=== PATIENT | female | born 1965 | race Caucasian/White ===

== ENCOUNTER → 2016-11-09 | Outpatient (CLI) | payer OTHER ==
[~2016-11-09] MED LIST: ATOR-26 PO; CEPH500C PO; CLR10 PO; IBUP-1427 PO; INSDGI SC; LISI2.5T5 PO; METF-384 PO; SULF800T23 PO
--- NOTE | 2016-11-10 14:34 | MAMMOGRAPHY REPORT ---
BILATERAL DIGITAL SCREENING MAMMOGRAM TOMOSYNTHESIS WITH CAD: 11/09/2016 CLINICAL HISTORY: Routine screening. TECHNIQUE: Breast tomosynthesis in addition to standard 2D mammography was performed. Current study was also evaluated with a Computer Aided Detection (CAD) system. COMPARISON: Comparison is made to exams dated: 05/10/2016 mammogram, 11/09/2015 mammogram, 11/02/2015 mammogram, 10/30/2014 mammogram, 10/09/2013 mammogram, and 09/26/2012 mammogram - [facility]. BREAST COMPOSITION: There are scattered areas of fibroglandular density in both breasts. FINDINGS: No suspicious masses, calcifications, or areas of architectural distortion are noted in ei ther breast. There has been no significant interval change compared to prior exams. IMPRESSION: ACR BI-RADS CATEGORY 1: NEGATIVE There is no mammographic evidence of malignancy. A 1 year screening mammogram is recommended. The pa tient will receive written notification of the results. Approximately 10% of breast cancers are not detected with mammography. A negative mammographic report should not delay biopsy if a clinically suggestive mass is present. Neema Yee M.D. /:11/10/2016 07:47:59 Farm Adviser: Sabrina PRIETO(Saundra)(M), [facility] letter sent: Normal 1/2 BI-RADS Code: ACR BI-RADS Category 1: Negative
== END | disposition home or self-care (01) ==
LOC: C.MAMM 17:03
PROVIDERS: ATTEND Nurse Practitioner
DX: Z12.31 Encounter for screening mammogram for malignant neoplasm of breast (principal)

== ENCOUNTER 2016-11-25 11:53 | Emergency (ER) | payer OTHER ==
[~2016-11-25] VITALS: Ht 162.6 cm; Wt 74.3 kg
[~2016-11-25 11:53] MED LIST changes: -CEPH500C PO; -IBUP-1427 PO; -SULF800T23 PO
[2016-11-25 11:56] VITALS: Ht 162.6 cm; Wt 74.3 kg
[2016-11-25] MEDS ORDERED: IBUPROFEN 600 MG TAB PO STA (13:40)
--- NOTE | 2016-11-25 13:59 | EMERGENCY ROOM VISIT NOTE ---
History Report prepared by Sydnee: Yaw Chino Under the Supervision of: Dr. Colby Hernandez M.D. First contact with patient: 13:34 Chief Complaint: FINGER PAIN Stated Complaint: THUMB PAIN History of Present Illness The patient is a 51 year old female who presents to the Emergency Room with complaints of constant left thumb pain starting two days ago. Additionally the pinky on the right hand has been red for two weeks. The patient states that she does not think that the hit it. Additionally, the patient is diabetic, and she states that her sugar has been normal recently. She states that she was pulling weeds recently as well before this happened. She is taking Tylenol at home for the pain. Source of History: patient Onset: two days ago Position: other (left thumb) Quality: other (bruised) Timing: constant Note: Associated symptoms: Left pinky redness Review of Systems All systems have been listed, reviewed, and are negative other than those previously mentioned. Please see Additional Medical History Sheet. Past Medical & Surgical Medical Problems: (1) Diabetes (2) High cholesterol Social History Smoking Status: Never Smoker Marital Status: single Occupation Status: disabled Current/Historical Medications Scheduled Atorvastatin (Lipitor), 80 MG PO HS Cephalexin Monohydrate (Keflex), 500 MG PO QID Insulin Glargine (Lantus), 35 UNITS SC BID Lisinopril (Lisinopril), 2.5 MG PO QAM Loratadine (Claritin), 10 MG PO QAM Metformin Hcl (Glucophage), 1,000 MG PO BID Scheduled PRN Ibuprofen Tab (Motrin), 600 MG PO Q6H PRN for Pain Allergies Coded Allergies: No Known Allergies (Verified , 11/25/16) Physical Exam Vital Signs Date Time Temp Pulse Resp B/P (MAP) Pulse Ox O2 Delivery O2 Flow Rate FiO2 11/25/16 15:16 36.7 75 18 124/79 96 11/25/16 14:02 69 18 143/81 95 11/25/16 11:56 36.7 89 16 123/71 96 Room Air Physical Exam GENERAL: Patient awake, alert, oriented x 3. Patient follows commands. Patient does not appear to be ill. Patient is adequately hydrated and well- nourished. SKIN: No erythema, pallor, cyanosis or rash HEENT: Normal head, pupils equal, reactive to light and accommodation. Ears normal. Oral cavity and posterior pharynx appear normal. Neck: Without adenopathy, no neck vein distention. LUNGS: Clear to auscultation. No wheezes, no rales, no rhonchi. HEART: No murmurs. No gallops. No rubs ABDOMEN: Soft and Nontender. No masses, no rebound, no hepatomegaly or splenomegaly. EXTREMITIES: Ecchymosis on the radial side of the distal end of the left thumb. The right fifth finger appears to be erythematous and infected at the end of the finger. No pedal or pretibial edema. No calf or thigh tenderness. NEUROLOGIC: Cranial nerves II-XII within normal limits. No gross motor sensory function deficits. Medical Decision & Procedures ER Provider Diagnostic Interpretation: X ray results are stated below per my interpretation and the radiologist's interpretation. RIGHT FIFTH FINGER 3 VIEWS CLINICAL HISTORY: Infected right fifth finger COMPARISON: None. DISCUSSION: The bones are osteopenic. There are mild osteoarthritic changes. There are no acute fractures. There is no conventional radiographic evidence of osteomyelitis. There is a small particular calcification at the level the volar aspect of the proximal to phalangeal joint. There is soft tissue swelling at the base of the nailbed. There is no evidence for soft tissue swelling. IMPRESSION: 1. Soft tissue swelling centered on the base the nailbed 2. No acute fractures or dislocations 3. No conventional radiographic evidence of osteomyelitis Electronically signed by: Lemuel Duran M.D. 11/25/2016 2:36 PM Dictated Date/Time: 11/25/2016 2:35 PM Left thumb 3 views CLINICAL HISTORY: thumb ecchymotic COMPARISON: None. DISCUSSION: No acute fractures are visualized. There are mild arthritic changes most pronounced the level the first carpal metacarpal joint. There is a 5 mm lytic focus within the base of the distal phalanx. This has a nonaggressive appearance with a narrow zone of transition. This is only visualized on the oblique film. IMPRESSION: 1. Probable 5 mm lytic focus visualized within the base of the distal phalanx. This is visualized only one projection. This has a nonaggressive appearance. 2. No acute fractures Electronically signed by: Lemuel Duran M.D. 11/25/2016 2:46 PM Dictated Date/Time: 11/25/2016 2:44 PM Laboratory Results 11/25/16 13:45 Red Blood Count 5.23, Mean Corpuscular Volume 94.3, Mean Corpuscular Hemoglobin 29.6, Mean Corpuscular Hemoglobin Concent 31.4, Mean Platelet Volume 9.7, Neutrophils (%) (Auto) 80.2, Lymphocytes (%) (Auto) 10.2, Monocytes (%) (Auto) 8.1, Eosinophils (%) (Auto) 1.0, Basophils (%) (Auto) 0.2, Neutrophils # (Auto) 8.61, Lymphocytes # (Auto) 1.09, Monocytes # (Auto) 0.87, Eosinophils # (Auto) 0.11, Basophils # (Auto) 0.02 11/25/16 13:45 Test 11/25/16 13:45 White Blood Count 10.73 K/uL (4.8-10.8) Red Blood Count 5.23 M/uL (4.2-5.4) Hemoglobin 15.5 g/dL (12.0-16.0) Hematocrit 49.3 % (37-47) Mean Corpuscular Volume 94.3 fL (80-100) Mean Corpuscular Hemoglobin 29.6 pg (25-34) Mean Corpuscular Hemoglobin Concent 31.4 g/dl (32-36) Platelet Count 188 K/uL (130-400) Mean Platelet Volume 9.7 fL (7.4-10.4) Neutrophils (%) (Auto) 80.2 % Lymphocytes (%) (Auto) 10.2 % Monocytes (%) (Auto) 8.1 % Eosinophils (%) (Auto) 1.0 % Basophils (%) (Auto) 0.2 % Neutrophils # (Auto) 8.61 K/uL (1.4-6.5) Lymphocytes # (Auto) 1.09 K/uL (1.2-3.4) Monocytes # (Auto) 0.87 K/uL (0.11-0.59) Eosinophils # (Auto) 0.11 K/uL (0-0.5) Basophils # (Auto) 0.02 K/uL (0-0.2) RDW Standard Deviation 46.1 fL (36.4-46.3) RDW Coefficient of Variation 13.4 % (11.5-14.5) Immature Granulocyte % (Auto) 0.3 % Immature Granulocyte # (Auto) 0.03 K/uL (0.00-0.02) Anion Gap 5.0 mmol/L (3-11) Est Creatinine Clear Calc Drug Dose 76.5 ml/min Estimated GFR () 91.3 Estimated GFR (Non- 78.8 BUN/Creatinine Ratio 23.1 (10-20) Calcium Level 9.2 mg/dl (8.5-10.1) Total Bilirubin 0.4 mg/dl (0.2-1) Aspartate Amino Transf (AST/SGOT) 6 U/L (15-37) Alanine Aminotransferase (ALT/SGPT) 21 U/L (12-78) Alkaline Phosphatase 90 U/L (45-117) Total Protein 7.5 gm/dl (6.4-8.2) Albumin 4.0 gm/dl (3.4-5.0) Globulin 3.5 gm/dl (2.5-4.0) Albumin/Globulin Ratio 1.1 (0.9-2) Laboratory results as stated above per my review. Medications Administered Medications (Trade) Dose Ordered Sig/Wilmar Route Start Time Stop Time Status Last Admin Dose Admin Ibuprofen (Motrin Tab) 600 mg NOW STAT PO 11/25/16 13:40 11/25/16 13:43 DC 11/25/16 13:40 600 MG ED Course 1334: Past medical records reviewed. The patient was evaluated in room C12. A complete history and physical examination was performed. 1340: Motrin Tab 600mg PO 1459: Upon reevaluation, the patient appeared to have improvement of her symptoms. I discussed today's findings with her. She verbalized agreement of the treatment plan. She was discharged home. Medical Decision Nurses notes reviewed. Medical history sheet reviewed. Differential diagnosis includes but is not limited to: trauma, infection, and septic emboli. Blood pressure Screening: Patient was found to have normal blood pressure on screening and does not require follow up. Medication Reconciliation: I attest that I have personally reviewed the patient' s current medication list. The patient has erythema and slight swelling of both her thumb and fifth finger on opposite hands. X-rays do not reveal any osteomyelitis or other sign of infection. Rest of exam is unremarkable. She does not appear to be septic or have signs of infection elsewhere. The patient's white count is not elevated. Glucose is elevated. In light of the swelling she may have some early cellulitis and therefore was placed on Keflex. She will take Motrin for pain. Impression Primary Impression: Finger swelling Scribe Attestation The scribe's documentation has been prepared under my direction and personally reviewed by me in its entirety. I confirm that the note above accurately reflects all work, treatment, procedures, and medical decision making performed by me. Departure Information Dispostion Home / Self-Care Prescriptions Ibuprofen Tab (MOTRIN) 600 Mg Tab 600 MG PO Q6H Y for Pain, #20 TAB Prov: Colby Hernandez M.D. 11/25/16 Cephalexin Monohydrate (Keflex) 500 Mg Cap 500 MG PO QID, #28 CAP Prov: Colby Hernandez M.D. 11/25/16 Referrals Deborah Castaneda C.R.N.P (PCP) Forms HOME CARE DOCUMENTATION FORM, IMPORTANT VISIT INFORMATION Patient Instructions My [facility] Additional Instructions Take 1 Keflex 4 times a day for the next 7 days. 600 mg ibuprofen every 6 hours as needed for pain. Follow-up with your family physician within the next 10 days to make sure your fingers are better.
[2016-11-25 14:15] LABS: BASO % 0.2 %; BASO ABS # 0.02 K/uL (0-0.2); COMPLETE YES; HEMATOCRIT 49.3 % (37-47); IG% 0.3 %; LYMPH % 10.2 %; LYMPH ABS # 1.09 K/uL (1.2-3.4); MEAN CELL VOLUME 94.3 fL (80-100); MEAN CORPUSCULAR HEMOGLOBIN 29.6 pg (25-34); MEAN CORPUSCULAR HGB CONC 31.4 g/dl (32-36); MEAN PLATELET VOLUME 9.7 fL (7.4-10.4); MONO % 8.1 %; NEUT % 80.2 %; PLATELET COUNT 188 K/uL (130-400); RED BLOOD COUNT 5.23 M/uL (4.2-5.4); WHITE BLOOD COUNT 10.73 K/uL (4.8-10.8)
[2016-11-25 14:33] LABS: BUN/CREATININE RATIO 23.1 (10-20); CALCIUM 9.2 mg/dl (8.5-10.1); CREATININE 0.85 mg/dl (0.60-1.20); POTASSIUM 3.8 mmol/L (3.5-5.1)
[2016-11-25 14:36] LABS: ALB/GLOB RATIO 1.1 (0.9-2)
--- NOTE | 2016-11-25 14:37 | DIAGNOSTIC IMAGING REPORT ---
RIGHT FIFTH FINGER 3 VIEWS CLINICAL HISTORY: Infected right fifth finger COMPARISON: None. DISCUSSION: The bones are osteopenic. There are mild osteoarthritic changes. There are no acute fractures. There is no conventional radiographic evidence of osteomyelitis. There is a small particular calcification at the level the volar aspect of the proximal to phalangeal joint. There is soft tissue swelling at the base of the nailbed. There is no evidence for soft tissue swelling. IMPRESSION: 1. Soft tissue swelling centered on the base the nailbed 2. No acute fractures or dislocations 3. No conventional radiographic evidence of osteomyelitis Electronically signed by: Lemuel Duran M.D. 11/25/2016 2:36 PM Dictated Date/Time: 11/25/2016 2:35 PM
--- NOTE | 2016-11-25 14:48 | DIAGNOSTIC IMAGING REPORT ---
Left thumb 3 views CLINICAL HISTORY: thumb ecchymotic COMPARISON: None. DISCUSSION: No acute fractures are visualized. There are mild arthritic changes most pronounced the level the first carpal metacarpal joint. There is a 5 mm lytic focus within the base of the distal phalanx. This has a nonaggressive appearance with a narrow zone of transition. This is only visualized on the oblique film. IMPRESSION: 1. Probable 5 mm lytic focus visualized within the base of the distal phalanx. This is visualized only one projection. This has a nonaggressive appearance. 2. No acute fractures Electronically signed by: Lemuel Duran M.D. 11/25/2016 2:46 PM Dictated Date/Time: 11/25/2016 2:44 PM
[2016-11-25] MEDS ORDERED: IBUP-1427 PO (15:02)
[2016-11-25] MEDS ORDERED: CEPH500C PO (15:02)
[2016-11-25 15:16] VITALS: BP 124/79; PULSE 75; TEMP 36.7; O2SAT 96
== END 2016-11-25 15:16 | disposition home or self-care (01) ==
LOC: C.EDB 11:55 → C.EDC 15:16
DX: M79.89 Other specified soft tissue disorders (principal); E11.9 Type 2 diabetes mellitus without complications; E78.00 Pure hypercholesterolemia, unspecified; Z79.4 Long term (current) use of insulin; Z79.899 Other long term (current) drug therapy

== ENCOUNTER → 2017-06-09 | Outpatient (CLI) | payer OTHER ==
[~2017-06-09] MED LIST changes: +SULF800T23 PO
[2017-06-09 18:34] LABS: ALT/SGPT 32 U/L (12-78); BLOOD UREA NITROGEN 12 mg/dl (7-18); CALCIUM 9.4 mg/dl (8.5-10.1); CARBON DIOXIDE 29 mmol/L (21-32); CHOLESTEROL 307 mg/dl (0-200); CREATININE 0.78 mg/dl (0.60-1.20); GLUCOSE 238 mg/dl (70-99); POTASSIUM 3.7 mmol/L (3.5-5.1); SODIUM 137 mmol/L (136-145)
[2017-06-09 18:44] LABS: ALKALINE PHOSPHATASE 96 U/L (45-117); AST/SGOT 17 U/L (15-37); LDL CHOLESTEROL CALCULATED 201 mg/dl; TOTAL PROTEIN 7.6 gm/dl (6.4-8.2)
[2017-06-10 06:58] LABS: HEMOGLOBIN A1C 10.5 % (4.5-5.6)
== END | disposition home or self-care (01) ==
LOC: C.LABPVFM 15:07
PROVIDERS: ATTEND Nurse Practitioner Family
DX: E78.5 Hyperlipidemia, unspecified (principal); E11.9 Type 2 diabetes mellitus without complications; R94.6 Abnormal results of thyroid function studies

== ENCOUNTER → 2017-09-01 | Outpatient (CLI) | payer OTHER ==
[~2017-09-01] MED LIST changes: +LISI-1116 PO; -LISI2.5T5 PO
[2017-09-01 14:21] LABS: BLOOD UREA NITROGEN 11 mg/dl (7-18); CARBON DIOXIDE 28 mmol/L (21-32); CREATININE 0.82 mg/dl (0.60-1.20); GLUCOSE 182 mg/dl (70-99); POTASSIUM 3.9 mmol/L (3.5-5.1); SODIUM 140 mmol/L (136-145)
[2017-09-01 14:27] LABS: CHOLESTEROL 187 mg/dl (0-200); LDL CHOLESTEROL CALCULATED 122 mg/dl
== END | disposition home or self-care (01) ==
LOC: C.LABPVFM 10:32
PROVIDERS: ATTEND Nurse Practitioner
DX: E78.5 Hyperlipidemia, unspecified (principal); E11.9 Type 2 diabetes mellitus without complications

== ENCOUNTER → 2017-12-25 | Outpatient (CLI) | payer OTHER ==
[2017-12-25 17:25] LABS: BLOOD UREA NITROGEN 15 mg/dl (7-18); CALCIUM 8.9 mg/dl (8.5-10.1); CARBON DIOXIDE 29 mmol/L (21-32); CREATININE 0.78 mg/dl (0.60-1.20); GLUCOSE 237 mg/dl (70-99); SODIUM 139 mmol/L (136-145)
[2017-12-26 05:51] LABS: HEMOGLOBIN A1C 9.9 % (4.5-5.6)
== END | disposition home or self-care (01) ==
LOC: C.LABPVFM 15:51
PROVIDERS: ATTEND Nurse Practitioner
DX: E11.9 Type 2 diabetes mellitus without complications (principal)

== ENCOUNTER 2020-04-04 11:14 | Observation (INO) ==
[2020-04-04] MEDS ORDERED: CLINDAMYCIN 900 MG in DEXTROSE 5% 50 ML IV ONE (12:01)
[2020-04-04] MEDS ORDERED: SODIUM CHLORIDE 0.9% 1000ML 500 ML IV ONE (12:03)
--- NOTE | 2020-04-04 12:07 | Emergency Department Note ---
Impression & Plan Cellulitis of face, Dental abscess, Abscess of face, Failure of outpatient treatment ED Provider Note NAME: MARCO ANDRADE AGE: 54 SEX: F : 1965 ARRIVES VIA: Walk-In INFORMANT: [Patient][sister] ED PROVIDER(S): [Geovanni Silva MD] CHIEF COMPLAINT: Facial pain HISTORY OF PRESENT ILLNESS: The patient is a 54-year-old female who has had 4 days of pain and swelling to the left face. She saw her doctor 2 days ago and was placed on Augmentin. Things have not improved and the swelling seems to be spreading towards her left eye. The pain is minimal. She does have some discomfort when she chews. There has been no fever although she has felt chilled and cold. No vomiting or diarrhea. No difficulty swallowing. She is diabetic and her sugars have been reasonable. The patient sister is here. They are all concerned this could be a dental infection that has spread. REVIEW OF SYSTEMS: See HPI for pertinent positives and negatives. A total of ten systems were reviewed and were otherwise negative. PMHx/PSHx: See Below SOCIAL HISTORY: See Below. PHYSICAL EXAM: GENERAL: Patient is in no acute distress. HEENT: Patient does have some left facial swelling and erythema. This area is tender. No palpable abscess. The area around the left eye at this point is not involved. Patient does have some poor dentition. She has tenderness to touch the left upper second bicuspid and one of her remaining back left upper molars. There is some swelling at the gumline in this area. No obvious drainable dental abscess seen. There is no throat erythema. No swelling to the floor of the mouth. NECK: No stridor, no adenopathy, no meningismus, trachea is midline. LUNGS: Clear to auscultation bilaterally, no wheeze, no rhonchi, breath sounds e qual. HEART: Without murmurs gallops or rubs, regular rate and rhythm. ABDOMEN: Soft, nontender, bowel sounds positive, no hernias, no peritonitis. EXTREMITIES: No cyanosis or edema, full range of motion of all the joints without pain or difficulty, no signs for acute trauma. NEUROLOGIC: Oriented x 3, no acute motor or sensory deficits, no focal weakness. SKIN: No rash, no jaundice, no diaphoresis. DIFFERENTIAL DIAGNOSIS: Orbital cellulitis, periorbital cellulitis, facial cellulitis, dental abscess, dental infection, Ludewig's angina, sepsis, failed outpatient treatment, pharyngitis, sinusitis or tonsillitis. EMERGENCY DEPARTMENT COURSE/PROCEDURES: MEDICAL DECISION MAKING: There is no leukocytosis or concerning anemia. There is a normal platelet count. No significant electrolyte abnormality or kidney failure. Covid testing is negative. Facial CT does show a facial abscess next to her #13 tooth. The abscess was 1.6 cm in size. On exam, there was no airway compromise, no evidence of for swelling to the floor of the mouth. The patient presents with left facial redness and swelling. She is on Augmentin but has not improved. On work-up, she appears to have a facial cellulitis and abscess. I spoke with maxillofacial surgery. The patient is being hospitalized on IV antibiotics. She will likely have the abscess drained by facial surgery in the very near future. She is to be n.p.o. after midnight. I spoke to the patient and her sister. I did speak with the manager combination. The on- call hospitalist was consulted. Past Med/Surg History Medical History Allergic rhinitis Diabetes mellitus Dyslipidemia Gastroesophageal reflux disease Hard of hearing Hematuria High cholesterol Hypertension Mild mental subnormality Thrombocytopenia Vertigo Surgical History No pertinent past surgical history Family History Father Myocardial infarction Other No significant family history Denies family history of Ovarian cancer Prostate cancer Breast cancer Colorectal cancer Social History Smoking Status: Never smoker Tobacco Type: Cigarettes Second Hand Exposure: No; Hx Alcohol Use: No Hx Substance Use: No Preferred Language: Bermudian Visual Impairment: No Limitations Hearing Ability: Normal marital status: Single Current Living Situation: Family current occupational status: disabled Feels Safe at Home: Yes Dental Care, Regularly: No Physical Activity Frequency: Daily Seatbelt Use: sometimes Sunscreen Use: No Allergies Allergies Allergy/AdvReac Type Severity Reaction Status Date / Time No Known Allergies Allergy Verified 04/04/20 12:12 Home Meds Home Medications Medication Instructions Recorded Confirmed insulin glargine [Lantus Solostar 70 unit SUBCUT PM 04/04/20 04/04/20 U-100 Insulin] lisinopril 2.5 mg PO QAM 04/04/20 04/04/20 loratadine 10 mg PO QAM 04/04/20 04/04/20 metformin 1,000 mg PO BID 04/04/20 04/04/20 omeprazole 20 mg PO QAM 04/04/20 04/04/20 Previous Rx's Medication Instructions Recorded atorvastatin 80 mg tablet 80 mg PO HS #30 tab 03/23/20 pen needle, diabetic 31 gauge x See Rx Instructions .ROUTE 03/23/20/16" .COMPLEX #50 ea amoxicillin 875 mg-potassium 1 tab PO BID #20 tab 04/02/20 clavulanate 125 mg tablet blood sugar diagnostic #100 ea 04/02/20 blood-glucose meter #1 ea 04/02/20 lancets #100 ea 04/02/20 Results & Data (ED) Vital Signs Vital Signs - 24 hr 04/04/20 11:26 04/04/20 13:14 04/04/20 14:57 Temperature 36.6 C Temperature Source Oral Pulse Rate 113 H Pulse Rate [Finger] 96 H 94 H Pulse Rhythm [Finger] Regular Regular Pulse Strength [Finger] Normal Normal Respiratory Rate 20 18 18 Respiratory Effort / Characteristics Non-Labored Non-Labored Spontaneous Non-Labored Spontaneous Respiratory Depth Normal Normal Normal Respiratory Pattern Regular Regular Regular Blood Pressure 118/73 Blood Pressure [Right Arm] 128/84 117/85 Blood Pressure Mean 88 Blood Pressure Mean [Right Arm] 98 95 Blood Pressure Position [Right Arm] Lying Lying Pulse Oximetry 95 98 94 Oxygen Delivery Method Room Air Room Air Room Air Sepsis Recent Fever Within 48 Hours No Sepsis New/Unexplained Change in Mental Status N/A Sepsis Action Taken by Nursing No Action Required Home Medications Current Medication List: was personally reviewed by me Laboratory Data Attestation: I reviewed the patient's lab results. Result diagrams: 04/04/20 12:08 04/04/20 12:08 Lab Results 04/04/20 04/04/20 04/04/20 Range/Units 12:08 12:08 14:47 WBC 9.09 (4.8-10.8) K/uL RBC 4.88 (4.2-5.4) M/uL Hgb 15.5 (12.0-16.0) g/dL Hct 47.5 H (37-47) % MCV 97.3 (80-100) fL MCH 31.8 (25-34) pg MCHC 32.6 (32-36) g/dL RDW Std Deviation 45.5 (36.4-46.3) fL RDW Coeff of Tyrone 12.8 (11.5-14.5) % Plt Count 135 (130-400) K/uL MPV 9.5 (7.4-10.4) fL Immature Gran % (Auto) 0.1 % Neut % (Auto) 70.2 % Lymph % (Auto) 18.0 % [place]ackelford % (Auto) 11.1 % Eos % (Auto) 0.4 % Baso % (Auto) 0.2 % Neut # (Auto) 6.37 (1.4-6.5) K/uL Lymph # (Auto) 1.64 (1.2-3.4) K/uL [place]elford # (Auto) 1.01 H (0.11-0.59) K/uL Eos # (Auto) 0.04 (0-0.5) K/uL Baso # (Auto) 0.02 (0-0.2) K/uL Immature Gran # (Auto) 0.01 (0.00-0.02) K/uL Sodium 138 (136-145) mmol/L Potassium 4.0 (3.5-5.1) mmol/L Chloride 103 (98-107) mmol/L Carbon Dioxide 32 (21-32) mmol/L Anion Gap 3.0 (3-11) BUN 13 (7-18) mg/dl Creatinine 0.84 (0.6-1.2) mg/dl Est Cr Clr Drug Dosing 80.1 ml/min Est GFR ( Amer) 90.7 Est GFR (Non-Af Amer) 78.2 BUN/Creatinine Ratio 14.9 (10-20) Glucose 136 H (70-99) mg/dl Calcium 9.4 (8.5-10.1) mg/dl SARS-CoV-2 Ag (Rapid) Negative (Negative) Administered Medications Discontinued Medications Clindamycin Phosphate 900 mg/ (Dextrose) 56 mls @ 112 mls/hr IV ONE ONE Stop: 04/04/20 12:30 Last Infusion: 04/04/20 13:12 Dose: 0 mls/hr Documented by: [id number] Admin: 04/04/20 12:31 Dose: 112 mls/hr Documented by: [id number] Sodium Chloride (Nss 1000ml) 500 mls @ 999 mls/hr IV .Q31M ONE Stop: 04/04/20 12:33 Last Infusion: 04/04/20 13:12 Dose: 0 mls/hr Documented by: [id number] Admin: 04/04/20 12:16 Dose: 999 mls/hr Documented by: [id number] Ioversol (Ioversol 100ml) 94 ml IV ONCE ONE Stop: 04/04/20 13:10 Last Admin: 04/04/20 13:09 Dose: 94 ml Documented by: [id number] Imaging Data Radiologist's Impression: CT soft tissue neck w con HISTORY: Left-sided facial swelling, poss abscess TECHNIQUE: Multiaxial CT images of the neck were performed following the use of intravenous contrast. COMPARISON STUDY: None. FINDINGS: The visualized brain parenchyma and orbits are within normal limits. The pterygopalatine fossa are well-maintained. The major mucosal airways services are intact. The epiglottis and prevertebral soft tissues are normal in thickness. The right gland enhances normally. There is a punctate calcified granuloma within the right lung apex. Mild mucosal thickening within the left maxillary sinus. The nodular cells are clear. The parotid and submandibular glan ds are symmetric. Mild left submandibular lymphadenopathy which is likely reactive. No additional enlarged cervical lymph nodes. Moderate disc space narrowing from C3 through C6 with endplate osteophytes. 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 This results in severe central canal narrowing at this level. The major cervical vessels appear patent. There is left-sided facial swelling. There is a 5 mm periapical lucency at ADA 13 with associated cortical breakthrough along the buccal surface of the maxilla. There is an adjacent 1.6 cm abscess at this location. This is best seen on image 141 of 409. This likely accounts for the left-sided facial swelling. There are a few additional scattered dental caries noted. IMPRESSION: 1. A 5 mm periapical lucency at ADA 13 with cortical breakthrough along the buccal surface of the maxilla and an associated 1.6 cm adjacent soft tissue abscess. 2. This likely accounts for the left-sided facial swelling. 3. Left-sided submandibular lymphadenopathy. This is likely reactive. Discharge Plan Visit Data Chief Complaint: Infection Stated Complaint: INFECTION ED Provider: Geovanni Silva Discharge Problem: Cellulitis of face, Dental abscess, Abscess of face, Failure of outpatient treatment Patient Disposition: Admitted As Inpatient Condition: Good Forms Stand Alone Forms: My [facility] Break Media Prescriptions Prescriptions: No Action atorvastatin 80 mg tablet 80 mg PO HS Qty: 30 RF: 6 pen needle, diabetic [BD Ultra-Fine Mini Pen Needle] 31 gauge x 3/16" needle See Rx Instructions .ROUTE .COMPLEX Qty: 50 RF: 5 (DME) Accu-Chek Guide test strips Strip See Rx Instructions .ROUTE .MEDSUPPLY Qty: 100 RF: 0 (DME) blood-glucose meter [Accu-Chek Guide Glucose Meter] Misc See Rx Instructions .ROUTE .MEDSUPPLY Qty: 1 RF: 0 (DME) lancets [Accu-Chek Multiclix Lancet] Misc See Rx Instructions .ROUTE .MEDSUPPLY Qty: 100 RF: 0 amoxicillin-pot clavulanate [Augmentin] 875-125 mg tablet 1 tab PO BID Qty: 20 RF: 0 metformin 1,000 mg tablet 1,000 mg PO BID RF: 0 omeprazole 20 mg capsule,delayed release(DR/EC) 20 mg PO QAM RF: 0 lisinopril 2.5 mg tablet 2.5 mg PO QAM RF: 0 loratadine 10 mg tablet 10 mg PO QAM RF: 0 Lantus Solostar U-100 Insulin 100 unit/mL (3 mL) insulin pen 70 unit subcut PM RF: 0 Referrals Referrals: Deborah Castaneda CRNP [Primary Care Provider] -
[2020-04-04 12:24] LABS: Basophils # (auto) 0.02 K/uL (0-0.2); Basophils % (auto) 0.2 %; Eosinophils # (auto) 0.04 K/uL (0-0.5); Eosinophils % (auto) 0.4 %; Hematocrit (blood only) 47.5 % (37-47); Hemoglobin 15.5 g/dL (12.0-16.0); Immature Granulocytes # (auto) 0.01 K/uL (0.00-0.02); Immature Granulocytes % (auto) 0.1 %; Lymphocytes # (auto) 1.64 K/uL (1.2-3.4); Mean Corpuscular Hemoglobin 31.8 pg (25-34); Mean Corpuscular Hgb Conc 32.6 g/dL (32-36); Mean Corpuscular Volume 97.3 fL (80-100); Mean Platelet Volume 9.5 fL (7.4-10.4); Monocytes # (auto) 1.01 K/uL (0.11-0.59); Monocytes % (auto) 11.1 %; Neutrophils # (auto) 6.37 K/uL (1.4-6.5); Neutrophils % (auto) 70.2 %; Platelet Count 135 K/uL (130-400); RDW Coefficient of Variation 12.8 % (11.5-14.5); RDW Standard Deviation 45.5 fL (36.4-46.3); Red Blood Count 4.88 M/uL (4.2-5.4); White Blood Count 9.09 K/uL (4.8-10.8)
[2020-04-04 12:43] LABS: BUN Creatinine Ratio 14.9 (10-20); Calcium 9.4 mg/dl (8.5-10.1); Creatinine Clr Calc Pharmacy 80.1 ml/min; Est GFR (African American) 90.7; Est GFR (Non-African American) 78.2
[2020-04-04] MEDS ORDERED: IOVERSOL 100ml IV ONE (13:09)
--- NOTE | 2020-04-04 13:22 | CT Scan Report ---
CT soft tissue neck w con HISTORY: Left-sided facial swelling, poss abscess TECHNIQUE: Multiaxial CT images of the neck were performed following the use of intravenous contrast. COMPARISON STUDY: None. FINDINGS: The visualized brain parenchyma and orbits are within normal limits. The pterygopalatine fo ssa are well-maintained. The major mucosal airways services are intact. The epiglottis and prevertebr al soft tissues are normal in thickness. The right gland enhances normally. There is a punctate calci fied granuloma within the right lung apex. Mild mucosal thickening within the left maxillary sinus. T he nodular cells are clear. The parotid and submandibular glands are symmetric. Mild left submandibul ar lymphadenopathy which is likely reactive. No additional enlarged cervical lymph nodes. Moderate di sc space narrowing from C3 through C6 with endplate osteophytes. 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 This results in severe central canal narrowing at this level. The major cervical vessels appear patent. There is left-sided facial swelling. There is a 5 mm periapical lucency at ADA 13 with associated cortical breakthrough along the buccal surface of the maxilla. The re is an adjacent 1.6 cm abscess at this location. This is best seen on image 141 of 409. This likely accounts for the left-sided facial swelling. There are a few additional scattered dental caries note d. IMPRESSION: 1. A 5 mm periapical lucency at ADA 13 with cortical breakthrough along the buccal surface of the max illa and an associated 1.6 cm adjacent soft tissue abscess. 2. This likely accounts for the left-sided facial swelling. 3. Left-sided submandibular lymphadenopathy. This is likely reactive. ACT 112: Negative or not required by law. Electronically signed by: Bayron Rajan M.D. 04/04/2020 1:21 PM
--- NOTE | 2020-04-04 14:12 | History & Physical Report ---
Date of Service April 04, 2020 Assessment & Plan (1) Dental abscess: As noted on CTAP Failed outpt augmentin Started on clinda in the ED, will continue WBC WNL, afebrile Pt for OR tomorrow with Dr. Carr Soft/liquid DM diet today, NPO after midnight COVID test pending (2) Cellulitis: secondary to dental abscess Monitor (3) Mild mental subnormality: Sister requests to be person of contact as pt does not always relay information accurately (4) Gastroesophageal reflux disease: continue home meds (5) Dyslipidemia: continue home meds (6) Diabetes mellitus: Metformin + lantus 70 units HS at home Holding metformin and will give lantus 35 units for NPO at midnight status A1c pending SSI PRN (7) Allergic rhinitis: continue home meds (8) High cholesterol: continue home meds (9) HTN (hypertension): continue home meds (10) DVT prophylaxis: SCDs given OR in AM History of Present Illness Primary Care Provider: WES Britton 54 y/o F c/o facial pain and swelling. This was first noticed about 4 days ago. It continued to worsen and pt was seen by PCP 2 days ago. She was started on augmentin at that time, however her L sided facial pain, swelling, and redness have continued to worsen. She has been able to eat, but is mostly just drinking liquids due to the pain. Pt has had dental extractions in the past, but denies hx of abscess or similar sx. Pt denies fever, SOB, chest pain, abd pain, n/v/c/d, LE pain or swelling. ED physician spoke with Dr. Carr who is planning for OR tomorrow AM. Allergies Allergy/AdvReac Type Severity Reaction Status Date / Time No Known Allergies Allergy Verified 04/04/20 12:12 Home Medications Medication Instructions Recorded Confirmed Type atorvastatin 80 mg tablet 80 mg PO HS #30 tab 03/23/20 04/04/20 Rx pen needle, diabetic 31 gauge x See Rx Instructions .ROUTE 03/23/20 04/02/20 Rx 3/16" .COMPLEX #50 ea amoxicillin 875 mg-potassium 1 tab PO BID #20 tab 04/02/20 04/04/20 Rx clavulanate 125 mg tablet blood sugar diagnostic #100 ea 04/02/20 Rx blood-glucose meter #1 ea 04/02/20 Rx lancets #100 ea 04/02/20 Rx insulin glargine [Lantus Solostar 70 unit SUBCUT PM 04/04/20 04/04/20 History U-100 Insulin] lisinopril 2.5 mg PO QAM 04/04/20 04/04/20 History loratadine 10 mg PO QAM 04/04/20 04/04/20 History metformin 1,000 mg PO BID 04/04/20 04/04/20 History omeprazole 20 mg PO QAM 04/04/20 04/04/20 History Past Med/Surg History Medical History Allergic rhinitis Diabetes mellitus Dyslipidemia Gastroesophageal reflux disease Hard of hearing Hematuria High cholesterol Hypertension Mild mental subnormality Thrombocytopenia Vertigo Surgical History No pertinent past surgical history Family History Father Myocardial infarction Other No significant family history Denies family history of Ovarian cancer Prostate cancer Breast cancer Colorectal cancer Social History Smoking Status: Never smoker Tobacco Type: Cigarettes Second Hand Exposure: No; Hx Alcohol Use: No Hx Substance Use: No Preferred Language: Filipino Visual Impairment: No Limitations Hearing Ability: Normal marital status: Single Current Living Situation: Family current occupational status: disabled Feels Safe at Home: Yes Dental Care, Regularly: No Physical Activity Frequency: Daily Seatbelt Use: sometimes Sunscreen Use: No Review of Systems Review of Systems: Pertinent positives and negatives reviewed in HPI--all others negative Physical Exam Constitutional: WD/WN, vitals as above Eyes: normal visual perales by confrontation and + anicteric sclerae ENMT: L sided facial redness and swelling, warmth Neck: normal visual inspection and trachea midline Respiratory: normal respiratory effort, lungs clear to auscultation Cardiovascular: Rate/Rhythm: regular rate and regular rhythm Gastrointestinal (Abdomen): Inspection/Auscultation: abdomen not distended Percussion/Palpation: abdomen soft; abdomen nontender Musculoskeletal: Head/Neck/Chest: normocephalic and head atraumatic negative for edema, peripheral pulses intact Skin: no rashes, warm and dry Neurologic: awake; not confused (looks to sister at times for help with answers, but overall conversant) Speech / Cognition: normal speech Psychiatric: A+Ox3, euthymic affect Results & Data Results & Data ([facility]) Vital Signs (Past 12 Hours) Vital Signs Temp Pulse Pulse Resp BP BP Pulse Ox 04/04/20 13:14 96 H 18 128/84 98 04/04/20 11:26 36.6 C 113 H 20 118/[address] soft tissue: 1. A 5 mm periapical lucency at ADA 13 with cortical breakthrough along the buccal surface of the maxilla and an associated 1.6 cm adjacent soft tissue abscess. 2. This likely accounts for the left-sided facial swelling. 3. Left-sided submandibular lymphadenopathy. This is likely reactive. Code Status & VTE Plan Code Status DNR/DNI per pt, sister confirms "she has told me that many times" VTE Prophylaxis Plan VTE Prophylaxis will be ordered: Yes PG Care Time/CCT Total # of Minutes Spent Total Time Spent with Patient: Total time spent is greater than 50% in coordination of care (as documented) at patient's floor/unit and/or counseling patient: Coding Level of Care Code 97981 OBS Care - Level 3 Diagnoses Dental abscess K04.7 Cellulitis L03.90 Mild mental subnormality F70 Gastroesophageal reflux disease K21.9 Dyslipidemia E78.5 Diabetes mellitus E11.9 Allergic rhinitis J30.9 High cholesterol E78.00 HTN (hypertension) I10 DVT prophylaxis Z29.9
[2020-04-04] MEDS ORDERED: ONDANSETRON INJ 2 MG/ML 2 ML VIAL IV PRN (15:52)
[2020-04-04] MEDS ORDERED: GLUCAGON FOR INJ 1 MG VIAL SQ PRN (15:52)
[2020-04-04] MEDS ORDERED: DEXTROSE 50% 50 ML SYRINGE IV PRN (15:52)
[2020-04-04] MEDS ORDERED: MAGNESIUM HYDROXIDE SUSP 30 ML UDC PO PRN (15:52)
[2020-04-04] MEDS ORDERED: GLUCOSE 10 TABS/TUBE PO PRN (15:52)
[2020-04-04] MEDS ORDERED: GLUCOSE 40% GEL 15 GM TUBE PO PRN (15:52)
[2020-04-04] MEDS ORDERED: CARBOHYDRATES FOR HYPOGLYCEMIA PO PRN (15:52)
[2020-04-04] MEDS: INSULIN ASPART 100 UNITS/ML 3 ML PEN SC SCH ×2 (17:31→20:15)
[2020-04-04] MEDS: CLINDAMYCIN 600 MG in DEXTROSE 5% 50 ML IV SCH (20:11)
[2020-04-04] MEDS: INSULIN GLARGINE SOLOSTAR 100 UNITS/ML 3 ML PEN SC SCH (20:14)
[2020-04-04] MEDS: ATORVASTATIN 40 MG TAB PO SCH (20:15)
[2020-04-04] MEDS ORDERED: SACCHAROMYCES BOULARDII 250 MG CAP PO PRN (21:44)
[2020-04-04] MEDS: SODIUM CHLORIDE 0.45 % 1,000 ML IV SCH (22:00)
[2020-04-05] MEDS: CLINDAMYCIN 600 MG in DEXTROSE 5% 50 ML IV SCH ×3 (03:40→19:46)
[2020-04-05] MEDS: ACETAMINOPHEN 325 MG TAB PO PRN ×3 (03:43→17:43)
[2020-04-05] MEDS: INSULIN ASPART 100 UNITS/ML 3 ML PEN SC SCH ×4 (07:14→21:02)
--- NOTE | 2020-04-05 08:48 | Surgery Consultation ---
Date of Consultation April 05 2020 Oral Maxillofacial Surgery Exam emergency consult; Facial swelling left side, gross swelling cheek, infraorbital and mucolabial area (cuspid fossa) Present Complaint: acute left side facial swelling from infected teeth # 13 and # 15 failed out patient antibiotic therapy swelling not improved over last 36 hours--I&D indicated MARIUSZ A detailed oral exam was completed. Finding--acute left side swelling, tender gingival tissue with deep pocket formation. Teeth 13 and 15 are carious/decayed removal is clinical indicated. CT scan---see report infection left side, carious ADA 13 and # 15 from my review of the CT scan. Soft tissue of the floor of the mouth, tongue, hard/soft palate, posterior pharyngeal area all with in normal limits, no pathology or abnormal findings noted other then the left upper facial swelling. Oral Care---Overall oral care is fair Occlusion---Class I with spacing and missing teeth TMJ exam: No pop, clicking, pain, good ROM, No history of TMJ injury or dysfunction Periodontal exam---fair Neck is supple, FROM, Able to extend and flex neck w/o difficulty, no masses, no abnormalities, no airway issues, no evidence of sleep apnea. Plan: I&D upper face with ext of # 13 and # 15 I reviewed the treatment plan and consent with the patient (and her sister by phone yesterday). Understanding was expressed. Time was given for questions regarding the surgery, risks and post op care. The procedure will be set up this AM in OR Review of informed consent with patient (and sister via phone) Reason for surgery to remove fractured decayed teeth: # 13 and 15 with I&D Risks discussed: Pain,swelling,infection, dry socket, delayed healing, nerve injury to face,lips,tongue,chin area which could be permanent (rare). TMJ, jaw stiffness, change in bite (rare), ear pain (referred). Sinus problems like fistula or infection. Need to leave a small root fragment in place to avoid injury to nerve or sinus. Home care reviewed--tooth brushing, rinsing, follow up care with Dr Carr. diet=[id number] dental. Discussed activity level,work while on Rx pain Meds. Plan: For the GA and surgery at Hospital today IV antibiotics and consideration for D/C tomorrow History of Present Illness Attending Physician: Sandhya Kruger, DO Allergies Allergy/AdvReac Type Severity Reaction Status Date / Time No Known Allergies Allergy Verified 04/04/20 12:12 Home Medications Medication Instructions Recorded Confirmed Type atorvastatin 80 mg tablet 80 mg PO HS #30 tab 03/23/20 04/04/20 Rx pen needle, diabetic 31 gauge x See Rx Instructions .ROUTE 03/23/20 04/02/20 Rx 3/16" .COMPLEX #50 ea amoxicillin 875 mg-potassium 1 tab PO BID #20 tab 04/02/20 04/04/20 Rx clavulanate 125 mg tablet blood sugar diagnostic #100 ea 04/02/20 Rx blood-glucose meter #1 ea 04/02/20 Rx lancets #100 ea 04/02/20 Rx insulin glargine [Lantus Solostar 70 unit SUBCUT PM 04/04/20 04/04/20 History U-100 Insulin] lisinopril 2.5 mg PO QAM 04/04/20 04/04/20 History loratadine 10 mg PO QAM 04/04/20 04/04/20 History metformin 1,000 mg PO BID 04/04/20 04/04/20 History omeprazole 20 mg PO QAM 04/04/20 04/04/20 History Patient History Medical History Allergic rhinitis Diabetes mellitus Dyslipidemia Gastroesophageal reflux disease Hard of hearing Hematuria High cholesterol Hypertension Mild mental subnormality Thrombocytopenia Vertigo Surgical History No pertinent past surgical history Family History Father Myocardial infarction Other No significant family history Denies family history of Ovarian cancer Prostate cancer Breast cancer Colorectal cancer Social History Smoking Status: Never smoker Tobacco Type: Cigarettes Second Hand Exposure: No; Do You Dip or Chew Tobacco: No; Tobacco Cessation Education Requested by Patient: No Hx Alcohol Use: No Hx Substance Use: No Preferred Language: Hebrew Communication Ability: Effective Visual Impairment: No Limitations Hearing Ability: Normal Prosthetic Assistant Required: No Beliefs That Will Affect Care: None marital status: Single Current Living Situation: Parent current occupational status: disabled Other Information That Helps Us Care for You: No Feels Safe at Home: Yes Safety Concerns: Feels Safe At This Time Dental Care, Regularly: No Physical Activity Frequency: Daily Seatbelt Use: sometimes Sunscreen Use: No Assistive Devices: None Results & Data ([facility] [place]) Vital Signs (Past 12 Hours) Vital Signs Temp Pulse Resp BP Pulse Ox 04/05/20 07:30 36.6 C 76 16 122/82 93 04/05/20 04:10 96 04/04/20 23:15 36.5 C 98 H 18 134/79 92 PG Care Time/CCT Total # of Minutes Spent Total Time Spent with Patient: Total time spent is greater than 50% in coordinat ion of care (as documented) at patient's floor/unit and/or counseling patient: Coding Level of Care Code 00494 Initial Inpt Care Lvl 3
[2020-04-05] MEDS: PANTOprazole 40 MG TAB PO SCH (09:00)
[2020-04-05] MEDS: lisinopril 2.5 MG TAB PO SCH (09:00)
[2020-04-05] MEDS: LORATADINE 10 MG TAB PO SCH (09:00)
[2020-04-05] MEDS ORDERED: LIDOCAINE HCL 2% 2 ML VIAL/AMP(20MG/ML) INFIL ONE (09:09)
[2020-04-05] MEDS ORDERED: MIDAZOLAM HCL 1 MG/ML 2ML VIAL ONE (09:09)
[2020-04-05] MEDS ORDERED: ONDANSETRON INJ 2 MG/ML 2 ML VIAL ONE (09:09)
[2020-04-05] MEDS ORDERED: ROCURONIUM BROMIDE 10 MG/ML 5 ML VIAL IV ONE (09:09)
[2020-04-05] MEDS ORDERED: fentaNYL citrate 100 MCG/2 ML VIAL ONE (09:09)
[2020-04-05] MEDS ORDERED: PROPOFOL IV EMULSION 10 MG/ML 20 ML VIAL IV ONE (09:09)
[2020-04-05] MEDS ORDERED: SUCCINYLCHOLINE 100MG/5ML SYR IV ONE (09:09)
--- NOTE | 2020-04-05 09:15 | Anesthesiology Consultation ---
Date of Service April 05, 2020 Assessment & Plan Chart Review Chart Review: Acceptable Risk for Surgery and Patient NOT seen in Pre Admission Testing Consults Requested none ASA ASA3 Proposed Anesthesia Anesthesia Type: General History Surgery Operation Date: 04/05/20 12:00 Proposed Procedures p Complete Bony Impaction - Grant Carr, DMD Height/Weight Height: 5 ft 6 in Weight: 79.6 kg Allergies Allergy/AdvReac Type Severity Reaction Status Date / Time No Known Allergies Allergy Verified 04/04/20 12:12 Medications Home Medications Medication Instructions Recorded Confirmed Last Taken atorvastatin 80 mg tablet 80 mg PO HS #30 tab 03/23/20 04/04/20 04/03/20 pen needle, diabetic 31 gauge x See Rx Instructions .ROUTE 03/23/20 04/02/20 Unknown 07/28" .COMPLEX #50 ea amoxicillin 875 mg-potassium 1 tab PO BID #20 tab 04/02/20 04/04/20 04/04/20 clavulanate 125 mg tablet blood sugar diagnostic #100 ea 04/02/20 Unknown blood-glucose meter #1 ea 04/02/20 Unknown lancets #100 ea 04/02/20 Unknown insulin glargine [Lantus Solostar 70 unit SUBCUT PM 04/04/20 04/04/20 04/03/20 U-100 Insulin] lisinopril 2.5 mg PO QAM 04/04/20 04/04/20 04/04/20 loratadine 10 mg PO QAM 04/04/20 04/04/20 04/04/20 metformin 1,000 mg PO BID 04/04/20 04/04/20 04/04/20 omeprazole 20 mg PO QAM 04/04/20 04/04/20 04/04/20 Active Medications Generic Name Dose Route Start Last Admin Trade Name Freq PRN Reason Stop Dose Admin Acetaminophen 650 mg 04/04/20 15:52 04/05/20 03:43 Acetaminophen 325 Mg Tab PO 05/04/20 15:51 650 mg Q4H PRN Administration pain/fever Atorvastatin Calcium 80 mg 04/04/20 21:00 04/04/20 20:15 Atorvastatin 40 Mg Tab PO 05/04/20 20:59 80 mg HS MAISHA Administration Sodium Chloride 1,000 mls @ 80 mls/hr 04/04/20 22:00 04/04/20 22:00 1/2 Nss IV 05/04/20 21:59 80 mls/hr .[id number] MAISHA Administration Clindamycin Phosphate 600 mg/ 54 mls @ 100 mls/hr 04/04/20 20:00 04/05/20 04:45 Dextrose IV 04/14/20 19:59 Infused Q8H MAISHA Infusion Insulin Aspart 0 units 04/04/20 16:30 04/05/20 07:14 Insulin Aspart 100 Units/Ml 3 Ml Pen SC 05/04/20 16:29 Not Given ACHS MAISHA Insulin Glargine 35 units 04/04/20 21:00 04/04/20 20:14 Insulin Glargine Solostar 100 Units/Ml 3 Ml Pen SC 05/04/20 20:59 35 units HS MAISHA Administration Lisinopril 2.5 mg 04/05/20 09:00 04/05/20 09:00 Lisinopril 2.5 Mg Tab PO 05/05/20 08:59 2.5 mg QAM MAISHA Administration Loratadine 10 mg 04/05/20 09:00 04/05/20 09:00 Loratadine 10 Mg Tab PO 05/05/20 08:59 10 mg QAM MAISHA Administration Pantoprazole Sodium 40 mg 04/05/20 09:00 04/05/20 09:00 Pantoprazole 40 Mg Tab PO 05/05/20 08:59 40 mg QAM MAISHA Administration Saccharomyces Boulardii 250 mg 04/04/20 21:44 04/04/20 22:21 Saccharomyces Boulardii 250 Mg Cap PO 05/05/20 08:59 250 mg DAILY PRN Administration Diarrhea NPO Date Last Intake of Fluids: 04/04/20 Time Last Intake of Fluids: 09:00 Last Intake of Fluids Comment: Few sips with water Date Last Intake of Solids: 04/04/20 Time Last Intake of Solids: 18:30 Past Medical History Medical History Allergic rhinitis Diabetes mellitus Dyslipidemia Gastroesophageal reflux disease Hard of hearing Hematuria High cholesterol Hypertension Mild mental subnormality Thrombocytopenia Vertigo Exercise / Class Metabolic Activity II 4-5 Yardwork/Stairs/Walk up hill Past Family History Family History Father Myocardial infarction Other No significant family history Denies family history of Ovarian cancer Prostate cancer Breast cancer Colorectal cancer Past Surgical History Surgical History No pertinent past surgical history Past Anesthesia History No Hx of Anesthesia Complications and No Family Hx of Anesthesia Complications History of PONV No Hx of PONV and No Hx of Motion Sickness Social History Smoking Status: Never smoker Do You Dip or Chew Tobacco: No Hx Alcohol Use: No Hx Substance Use: No Physical Exam Vital Signs Last Vital Signs Temp 36.6 C 04/05/20 07:30 Pulse 76 04/05/20 07:30 Resp 16 04/05/20 07:30 BP 122/82 04/05/20 07:30 Pulse Ox 93 04/05/20 07:30 Testing Laboratory Results 04/04/20 12:08 04/04/20 12:08 04/05/20 05:44 POC Glucose 100 H
[2020-04-05] MEDS ORDERED: FLUMAZENIL 0.1 MG/1 ML 10 ML VIAL IV PRN (09:45)
[2020-04-05] MEDS ORDERED: fentaNYL citrate 100 MCG/2 ML VIAL IV PRN (09:45)
[2020-04-05] MEDS ORDERED: PROMETHAZINE HCL 12.5 MG in SODIUM CHLORIDE 0.9% 50 ML IV PRN (09:45)
[2020-04-05] MEDS ORDERED: ATROPINE SULFATE 0.1 MG/ML 10ML SYR IV PRN (09:45)
[2020-04-05] MEDS ORDERED: NALOXONE HCL 0.4 MG/1 ML VIAL/CARP IV PRN (09:45)
[2020-04-05] MEDS ORDERED: ePHEDrine sulfate 50 MG/ML AMP IV PRN (09:45)
[2020-04-05] MEDS ORDERED: ONDANSETRON INJ 2 MG/ML 2 ML VIAL IV PRN (09:45)
[2020-04-05] MEDS ORDERED: LABETALOL HCL IV 5 MG/ML 20ML IV PRN (09:45)
--- NOTE | 2020-04-05 09:45 | History & Physical Bridge Note ---
Date of Service April 05, 2020 History & Physical Bridge Note I have examined the patient, reviewed the History & Physical and in the interval since the performance of the History & Physical I have noted the following changes of clinical significance: no changes noted. OK for procedures this AM
[2020-04-05] MEDS ORDERED: CHLORHEXIDINE GLUCONATE 0.12% 480 ML ONE (10:10)
[2020-04-05] MEDS ORDERED: GLYCOPYRROLATE 0.2 MG/ML VIAL ONE (10:20)
[2020-04-05] MEDS ORDERED: NEOSTIGMINE METHYLSULFATE 5 MG/5 ML SYR ONE (10:20)
--- NOTE | 2020-04-05 11:14 | Operative Report ---
Post Operative Report Pre & Post Diagnosis Operation Date: 04/05/20 12:00 Pre-Op Diagnosis: DENTAL ABSCESS upper left infraorbital area and carious # 13 and # 15 Post-Op Diagnosis: DENTAL ABSCESS upper left infraorbital area and carious # 13 and # 15 I identified the patient and participated in the time-out.: Yes Procedure Operation Date: 04/05/20 12:00 Actual Procedures Diagnosis: DENTAL ABSCESS upper left infraorbital area and carious # 13 and # 15 p Incision and Drainage of Left Upper Face Abscess; Extraction of Teeth #13 & 15 (Left) - Grant Carr DMD Actual Procedures p Incision and Drainage Submandibular Abscess; Removal of Teeth #13 and 15 (Not Applicable) - Grant Carr DMD Once cleared for surgery general anesthesia was achieved, the eyes were protected by the anesthesia dept criteria. A time out was take for patient ID, antibiotics, equipment and position verification once all agreed the procedure began. Local anesthesia using Articaine 4 % x 2 with a vasoconstrictor ( 1.8 ml per site) given into left muco buccal fold and palate A throat pack was placed after the oral cavity was irrigated with saline. Once a surgical level of anesthesia was obtained and the local anesthesia was given time for the blocks the surgery was started. I turned my attention to the infection which was located in the upper cheek, infraorbital cuspid area and palate associated with decayed # 13 and # 15. Incision and Drainage Using a 15 blade an incision was made from the tuberosity area around # 15 to area11 Once the incision was made a lot of pus extruded from the site. This drainage was cultured for anaerobic and aerobic bacteria. A curved hemostat was carefully placed into the infected space along the medial side of the upper jaw, sinus and lateral nasal area.Some further drainage was now allowed to escape. I palpated the infraorbital and cheek area area and no further drainage was expressed. The area was irrigated with at least 100 ml of NS solution. The tissue was trimmed in the to allow an anatomic closure once the teeth were removed. I now turned my attention to remove # 13 and 15 Upper decayed # 13 and 15 teeth I turned my attention to area # 13 and 15 , these teeth was grossly decayed. The rogue was used to remove bone, the teeth were removed with a dental forceps in the usually manner, once extracted there was a large amount of granulation tissue on the apex and some more pus that was expressed. The socket was curetted until all infected tissue was removed. I now placed a long 1/4 inch [place] drain from the mucosal incision high into the infraorbital space and sutured it into place with a 2-0 chromic. When the necessary procedures were completed I inspected the sites to insure all bleeding was controlled and the drain was sutured into place. I removed the throat pack and suctioned the throat. A gauze pressure dressings was placed. All instrument and sponge count was correct. the patient was allowed to awake from the anesthesia. Once full awake the anesthesia tube was removed and the patient was taken to the recovery room with all vital sign stable. The patient tolerated the surgery very well. I will follow the patient in my office, Rx and instructions will be given upon discharge. Surgeon Grant Carr, KIERRA Surgeon Grant Carr, KIERRA Revenue Integrity Analyst none Estimated Blood Loss 10 Findings Consistent with Post-Op Diagnosis Specimens C and S infection upper left infraorbital space Description of Procedure I and D ext of 13 and 15 tooth I attest to the content of the Intraoperative Record and any orders documented therein. Any exceptions are noted below.
--- NOTE | 2020-04-05 11:34 | Anesthesiology Progress Note ---
Date of Service April 05, 2020 Anesthesia Post Procedure Vital Signs Vital Signs: Temp Pulse Pulse Resp BP BP Pulse Ox 04/05/20 11:25 76 18 112/69 97 04/05/20 11:15 78 20 118/86 99 04/05/20 11:05 82 19 121/82 97 04/05/20 10:59 36.1 C L 87 16 129/83 98 04/05/20 07:30 36.6 C 76 16 122/82 93 04/05/20 04:10 96 04/04/20 23:15 36.5 C 98 H 18 134/79 92 04/04/20 16:00 37 C 99 H 16 133/85 97 04/04/20 14:57 94 H 18 117/85 94 04/04/20 13:14 96 H 18 128/84 98 Pain Intensity Left Face: Pain Intensity: 1 Transfer of Care Handoff Completed per policy Notes Mental Status: alert / awake / arousable Patient Amnestic to Procedure: Yes Nausea / Vomiting: adequately controlled Pain: adequately controlled Airway Patency, RR, SpO2: stable & adequate BP & HR: stable & adequate Hydration State: stable & adequate Anesthetic Complications: no major complications apparent
[2020-04-05] MEDS: SODIUM CHLORIDE 0.45 % 1,000 ML IV SCH (12:11)
--- NOTE | 2020-04-05 15:06 | Hospitalist Progress Note ---
Date of Service April 05, 2020 Assessment & Plan (1) Dental abscess: As noted on CTAP Failed outpt augmentin Started on clinda in the ED, will continue WBC WNL, afebrile s/p extraction of 13, [address] Carr on 04/05 Cx pending COVID test neg on admission, done solely as pre-op screening (2) Cellulitis: secondary to dental abscess Monitor (3) Mild mental subnormality: Sister requests to be person of contact as pt does not always relay information accurately (4) Gastroesophageal reflux disease: continue home meds (5) Dyslipidemia: continue home meds (6) Diabetes mellitus: Metformin + lantus 70 units HS at home Will resume metformin and home lantus dosing once pt's PO status is stable post- op A1c pending SSI PRN (7) Allergic rhinitis: continue home meds (8) High cholesterol: continue home meds (9) HTN (hypertension): continue home meds (10) DVT prophylaxis: SCDs given OR status Admission and Anticipated Discharge Date Admission Date: April 04, 2020 Subjective Pt is doing well post-op. States her L sided facial pain is improving. Is finishing lunch during our discussion and no issues with soft foods. Pt denies fever, SOB, chest pain, abd pain, n/v/c/d, LE pain or swelling. Review of Systems Review of Systems: Pertinent positives and negatives reviewed in HPI--all others negative Physical Exam Constitutional: WD/WN, vitals as above Eyes: normal visual perales by confrontation and + anicteric sclerae ENMT: L sided facial redness and swelling improved Neck: normal visual inspection and trachea midline Respiratory: normal respiratory effort, lungs clear to auscultation Cardiovascular: Rate/Rhythm: regular rate and regular rhythm Gastrointestinal (Abdomen): Inspection/Auscultation: abdomen not distended Percussion/Palpation: abdomen soft; abdomen nontender Musculoskeletal: Head/Neck/Chest: normocephalic and head atraumatic Skin: no rashes, warm and dry Neurologic: awake; not confused Speech / Cognition: normal speech Psychiatric: A+Ox3, euthymic affect Results & Data Results & Data ([facility]) Vital Signs (Past 12 Hours) Vital Signs Temp Pulse Pulse Resp BP Pulse Ox 04/05/20 14:44 93 H 18 116/76 90 04/05/20 13:11 89 18 119/79 99 04/05/20 12:22 84 16 131/70 98 04/05/20 12:00 36.6 C 79 16 112/65 98 04/05/20 11:35 36.4 C L 76 16 118/78 97 04/05/20 11:25 76 18 112/69 97 04/05/20 11:15 78 20 118/86 99 04/05/20 11:05 82 19 121/82 97 04/05/20 10:59 36.1 C L 87 16 129/83 98 04/05/20 07:30 36.6 C 76 16 122/82 93 04/05/20 04:10 96 PG Care Time/CCT Total # of Minutes Spent Total Time Spent with Patient: Total time spent is greater than 50% in coordination of care (as documented) at patient's floor/unit and/or counseling patient: Coding Level of Care Code 81160 Subseq Obs Care Lvl 3 Diagnoses Dental abscess K04.7 Cellulitis L03.90 Mild mental subnormality F70 Gastroesophageal reflux disease K21.9 Dyslipidemia E78.5 Diabetes mellitus E11.9 Allergic rhinitis J30.9 High cholesterol E78.00 HTN (hypertension) I10 DVT prophylaxis Z29.9
[2020-04-05] MEDS: ATORVASTATIN 40 MG TAB PO SCH (19:47)
[2020-04-05] MEDS: INSULIN GLARGINE SOLOSTAR 100 UNITS/ML 3 ML PEN SC SCH (21:01)
[2020-04-06] MEDS: SODIUM CHLORIDE 0.45 % 1,000 ML IV SCH (01:50)
[2020-04-06] MEDS: CLINDAMYCIN 600 MG in DEXTROSE 5% 50 ML IV SCH (04:18)
[2020-04-06 07:09] LABS: Estimated Average Glucose 269 mg/dl
[2020-04-06] MEDS: lisinopril 2.5 MG TAB PO SCH (08:29)
[2020-04-06] MEDS: LORATADINE 10 MG TAB PO SCH (08:29)
[2020-04-06] MEDS: PANTOprazole 40 MG TAB PO SCH (08:29)
[2020-04-06] MEDS: INSULIN ASPART 100 UNITS/ML 3 ML PEN SC SCH (08:31)
--- NOTE | 2020-04-06 10:46 | Discharge Summary ---
Date of Service April 06, 2020 Admission HPI Per Admitting Provider 54 y/o F c/o facial pain and swelling. This was first noticed about 4 days ago. It continued to worsen and pt was seen by PCP 2 days ago. She was started on augmentin at that time, however her L sided facial pain, swelling, and redness have continued to worsen. She has been able to eat, but is mostly just drinking liquids due to the pain. Pt has had dental extractions in the past, but denies hx of abscess or similar sx. Pt denies fever, SOB, chest pain, abd pain, n/v/c/d, LE pain or swelling. ED physician spoke with Dr. Carr who is planning for OR tomorrow AM. Principal Diagnosis Pt feels she is doing fine and asks to go home. No further pain. She is tolerating soft diet without issues. Pt denies fever, SOB, chest pain, abd pain, n/v/c/d, LE pain or swelling. Discharge Exam Constitutional WD/WN, vitals as above Eyes normal visual perales by confrontation and + anicteric sclerae ENMT L sided facial redness is resolved Mild L sided facial swelling, but much improved Neck normal visual inspection and trachea midline Respiratory normal respiratory effort, lungs clear to auscultation Cardiovascular Rate/Rhythm: regular rate and regular rhythm Gastrointestinal (Abdomen) Inspection/Auscultation: abdomen not distended Percussion/Palpation: abdomen soft; abdomen nontender Musculoskeletal Head/Neck/Chest: normocephalic and head atraumatic Skin no rashes, warm and dry Neurologic awake; not confused Speech / Cognition: normal speech Psychiatric A+Ox3, euthymic affect Discharge Data Allergies Allergy/AdvReac Type Severity Reaction Status Date / Time No Known Allergies Allergy Verified 04/04/20 12:12 Consultations 04/04/20 13:47 ED Decision to Admit Stat 04/04/20 15:52 Consult Oromaxillofacial Surgery Routine Procedures Performed Operation Date: 04/05/20 12:00 Actual Procedures p Extraction of Teeth #13 & 15(Left) - Grant Carr DMD s Incision and Drainage of Left Upper Face Abscess; - Grant Carr DMD Ordered Studies 04/04/20 12:01 CT soft tissue neck w con Stat Hospital Course (1) Dental abscess: As noted on CTAP Failed outpt augmentin Started on clinda in the ED and maintained during admission via IV, will finish course PO as outpt WBC WNL, afebrile s/p extraction of 13, [address] Carr on 04/05 Cx pending COVID test neg on admission, done solely as pre-op screening (2) Cellulitis: secondary to dental abscess Monitor (3) Mild mental subnormality: Sister requests to be person of contact as pt does not always relay information accurately (4) Gastroesophageal reflux disease: continue home meds (5) Dyslipidemia: continue home meds (6) Diabetes mellitus: Metformin + lantus 70 units HS at home A1c 11.0 This will need addressed with PCP once taking usual PO (7) Allergic rhinitis: continue home meds (8) High cholesterol: continue home meds (9) HTN (hypertension): continue home meds (10) DVT prophylaxis: SCDs given OR status Total Time Total Time Spent Total Time Spent (In Minutes): >30 Total Time Includes: Examination of the Patient, Discharge Planning, Medication Reconciliation, Communication With Other Providers and Other Discharge Plan Discharge Items Patient Disposition: Home - Self-Care Reason For Visit: DENTAL ABSCESS Discharge Diagnosis: Dental abscess Condition on Discharge: Good Activity: Resume your previous activity Lifting: Gradually increase as tolerated Bathing: No limitations Weightbearing: Full weightbearing Non-emergency contact: Primary Care Provider and Surgeon Call non-emergency contact if: you have any medication questions, your symptoms worsen, your pain is not controlled, your temperature is above 101.5, your wound has increased redness and your wound has increased drainage Follow-up/Referrals: Deborah Castaneda CRNP [Primary Care Provider] - Grant Carr, KIERRA [Physician] - Diet: Carb Consistent or DM2 Addtl Attending Provider Instructions: You should follow up with Dr. Carr in 7-10 days. If you have a return of pain, redness, or swelling---you should follow up with him sooner or return to the ED. Please call Dr Smalls to set up a follow up appointment for APR 16 to have the drain and sutures removedADDITIONAL ACTIVITY RECOMMENDATIONS: * [place] teeth after every meal. It is very important to keep your mouth clean to prevent infection. SPECIAL CARE INSTRUCTIONS: * apply heat (hot water bottle or heating pad) for the next two days, as often as possible. * massage the upper left side of your face as much as possible * Tomorrow start rinsing your mouth with 1/2 teaspoon salt in 8 ounces warm water. This rinse should be used every 4-6 hours. * You may experience slight nausea. To prevent this, never take your medication on an empty stomach. If nauseated, take small sips of courtney chantal until you feel better; then you may start on applesauce and toast. * Some swelling is common. It should gradually decrease within 4-5 days. * A certain amount of bleeding is to be expected. It is often possible to control mild oozing by placing folded gauze over the area and biting down for 30 minutes. If you are unable to control excessive bleeding, call Dr Carr at [phone] NEED TO REMOVE DRAIN ON APR 16 Call offic eto set this up * You may experience some discomfort for a few days. If pain or swelling increases, Call Dr Carr Pending Studies at Discharge: Yes Studies:: Wound culture final Stand-Alone Forms: [facility], Smoking Cessation Medications and DC Order Prescriptions: New clindamycin HCl 300 mg capsule 600 mg PO Q8H 10 Days Qty: 60 RF: 0 Continued atorvastatin 80 mg tablet 80 mg PO HS Qty: 30 RF: 6 pen needle, diabetic [BD Ultra-Fine Mini Pen Needle] 31 gauge x 3/16" needle See Rx Instructions .ROUTE .COMPLEX Qty: 50 RF: 5 (DME) Accu-Chek Guide test strips Strip See Rx Instructions .ROUTE .MEDSUPPLY Qty: 100 RF: 0 (DME) blood-glucose meter [Accu-Chek Guide Glucose Meter] Misc See Rx Instructions .ROUTE .MEDSUPPLY Qty: 1 RF: 0 (DME) lancets [Accu-Chek Multiclix Lancet] Misc See Rx Instructions .ROUTE .MEDSUPPLY Qty: 100 RF: 0 metformin 1,000 mg tablet 1,000 mg PO BID RF: 0 omeprazole 20 mg capsule,delayed release(DR/EC) 20 mg PO QAM RF: 0 lisinopril 2.5 mg tablet 2.5 mg PO QAM RF: 0 loratadine 10 mg tablet 10 mg PO QAM RF: 0 Lantus Solostar U-100 Insulin 100 unit/mL (3 mL) insulin pen 70 unit subcut PM RF: 0 Discontinued amoxicillin-pot clavulanate [Augmentin] 875-125 mg tablet 1 tab PO BID Qty: 20 RF: 0 Discharge Orders: Discharge Order (Routine); Ordered 04/06/20 Ordered By: Sandhya Cornell/Other Patient Handouts: Dental Abscess, After a Tooth Extraction Caring ... Admission Data Admit Date/Time: 04/04/20 14:10 Attending Provider: Sandhya Kruger Admit Provider: Sandhya Kruger Primary Care Provider: Deborah Castaneda Other Providers: Sandhya Kruger ; Grant Carr Other Interventions: Discharge Summary Assessment (RN) Last Done: 04/06/20 10:59 Coding Level of Care Code D/C Day Management >30 mins Diagnoses Dental abscess K04.7 Cellulitis L03.90 Mild mental subnormality F70 Gastroesophageal reflux disease K21.9 Dyslipidemia E78.5 Diabetes mellitus E11.9 Allergic rhinitis J30.9 High cholesterol E78.00 HTN (hypertension) I10 DVT prophylaxis Z29.9
--- NOTE | 2020-04-06 11:15 | Progress Note ---
Date of Service April 06, 2020 Assessment & Plan Admission and Anticipated Discharge Date Admission Date: April 04, 2020 Results & Data ([facility]) Vital Signs (Past 12 Hours) Vital Signs Temp Pulse Pulse Resp BP Pulse Ox 04/06/20 10:59 36.8 C 76 92 H 18 112/73 90 04/06/20 07:40 36.8 C 92 H 18 112/73 90 04/06/20 03:28 36.6 C 82 16 95/59 L 96 04/05/20 23:47 36.8 C 90 18 114/75 92 PG Care Time/CCT Total # of Minutes Spent Total Time Spent with Patient: Total time spent is greater than 50% in coordination of care (as documented) at patient's floor/unit and/or counseling patient: Coding Level of Care Code None
--- NOTE | 2020-04-06 11:18 | Progress Note ---
Date of Service doing well this am swelling down, pain controlled, well sutured and drain function is excellent Reviewed home care and follow up Need to remove Drain by DEC 3 --patient to arrange Instructions given and written for antibiotics. OK for D/C today Responding well to I&D and antibiotics April 06, 2020 Assessment & Plan Admission and Anticipated Discharge Date Admission Date: April 04, 2020 Results & Data ([facility]) Vital Signs (Past 12 Hours) Vital Signs Temp Pulse Pulse Resp BP Pulse Ox 04/06/20 10:59 36.8 C 76 92 H 18 112/73 90 04/06/20 07:40 36.8 C 92 H 18 112/73 90 04/06/20 03:28 36.6 C 82 16 95/59 L 96 04/05/20 23:47 36.8 C 90 18 114/75 92 PG Care Time/CCT Total # of Minutes Spent Total Time Spent with Patient: Total time spent is greater than 50% in coordination of care (as documented) at patient's floor/unit and/or counseling patient: Coding Level of Care Code 92984 Subseq Hosp Care Lvl 1
== END 2020-04-06 14:08 | disposition home or self-care (01) ==
LOC: 3E 11:14 → ED 11:14 → 3E 15:25